=== PATIENT | male | born 1950 | race Caucasian/White ===

== ENCOUNTER 2016-12-18 14:30 | Emergency (ER) | payer OTHER ==
[2016-12-18 16:27] LABS: RED BLOOD COUNT 5.36 M/UL (4.20-5.50); WHITE BLOOD COUNT 8.2 K/UL (4.5-11.0)
[2016-12-18 16:48] LABS: BUN/CREATININE RATIO 15 (0-10)
== END 2016-12-18 18:45 | disposition home or self-care (01) ==
LOC: ER1 14:30
PROVIDERS: Family Medicine
DX: J10.1 Influenza due to other identified influenza virus with other respiratory manifestations (principal); R41.0 Disorientation, unspecified; E11.65 Type 2 diabetes mellitus with hyperglycemia; R91.1 Solitary pulmonary nodule; F17.200 Nicotine dependence, unspecified, uncomplicated; Z79.84 Long term (current) use of oral hypoglycemic drugs; Z79.899 Other long term (current) drug therapy
CPT/HCPCS: 36415; 70450; 71010; 80053; 81001; 82550; 82553; 83874; 84484; 85025; 87040; 87081; 87880; 93005; 99285

== ENCOUNTER → 2016-12-22 | Outpatient (CLI) | payer OTHER | LOC: KOH-I 08:30 | DX: R91.1 Solitary pulmonary nodule (principal); K76.0 Fatty (change of) liver, not elsewhere classified; R91.8 Other nonspecific abnormal finding of lung field | CPT/HCPCS: 71260; Q9962 ==

== ENCOUNTER 2017-01-16 15:16 | Emergency (ER) | payer OTHER ==
[2017-01-16 17:07] LABS: HEMOGLOBIN 13.2 gm/dl (14.0-17.5); RED BLOOD COUNT 4.65 M/UL (4.20-5.50); WHITE BLOOD COUNT 9.7 K/UL (4.5-11.0)
[2017-01-16 17:30] LABS: BUN/CREATININE RATIO 18 (0-10)
== END 2017-01-16 21:10 | disposition home or self-care (01) ==
LOC: ER1 15:16
PROVIDERS: Student in an Organized Health Care Education/Training Program
DX: I49.9 Cardiac arrhythmia, unspecified (principal); J44.9 Chronic obstructive pulmonary disease, unspecified; I10 Essential (primary) hypertension; E11.9 Type 2 diabetes mellitus without complications; F03.90 Unspecified dementia, unspecified severity, without behavioral disturbance, psychotic disturbance, mood disturbance, and anxiety; F17.210 Nicotine dependence, cigarettes, uncomplicated; Z85.118 Personal history of other malignant neoplasm of bronchus and lung; Z79.84 Long term (current) use of oral hypoglycemic drugs; Z79.899 Other long term (current) drug therapy
CPT/HCPCS: 36415; 71010; 80053; 82550; 82553; 83605; 83874; 83880; 84484; 85025; 87040; 93005; 99285; J7030

== ENCOUNTER 2017-02-19 21:11 | Emergency (ER) | payer OTHER ==
[2017-02-19 23:00] LABS: HEMOGLOBIN 11.5 gm/dl (14.0-17.5); RED BLOOD COUNT 3.58 M/UL (4.20-5.50); WHITE BLOOD COUNT 20.6 K/UL (4.5-11.0)
[2017-02-19 23:20] LABS: BUN/CREATININE RATIO 30 (0-10)
[2017-02-20 09:55] LABS: BUN/CREATININE RATIO 29 (0-10); HEMOGLOBIN 9.1 gm/dl (14.0-17.5); RED BLOOD COUNT 3.22 M/UL (4.20-5.50)
[2017-02-20 17:50] LABS: ACINETOBACTER BAUMANNII Not Detected (Negative); CANDIDA ALBICANS Not Detected (Negative); CANDIDA KRUSEI Not Detected (Negative); CANDIDA TROPICALIS Not Detected (Negative); ENTEROCOCCUS Not Detected (Negative); ESCHERICHIA COLI Not Detected (Negative); HAEMOPHILUS INFLUENZAE Not Detected (Negative); KLEBSIELLA OXYTOCA Not Detected (Negative); KLEBSIELLA PNEUMONIAE Not Detected (Negative); KPC-CARBAPENEM-RESISTANCE GENE Not Detected (Negative); PROTEUS Not Detected (Negative); PSEUDOMONAS AERUGINOSA Not Detected (Negative); SERRATIA MARCESANS Not Detected (Negative); STAPHYLOCOCCUS AUREUS Not Detected (Negative); STREP AGALACTIAE (GROUP B) Not Detected (Negative); STREP PYOGENES (GROUP A) Not Detected (Negative); STREPTOCOCCUS Not Detected (Negative); vanA/B (VANCOMYCIN RESIST GENE Not Detected (Negative)
[2017-02-20 19:50] LABS: mecA (METHICILLIN RESIST GENE DETECTED (Negative)
[2017-02-20 19:53] LABS: STAPHYLOCOCCUS DETECTED (Negative)
== END 2017-02-20 12:45 ==
LOC: ER1 21:11 → ZEROF 02-20 02:50 → ER1 02-20 12:45
PROVIDERS: Emergency Medicine; Physician Assistant
DX: R41.82 Altered mental status, unspecified (principal); R10.9 Unspecified abdominal pain; J44.9 Chronic obstructive pulmonary disease, unspecified; C34.90 Malignant neoplasm of unspecified part of unspecified bronchus or lung; E11.9 Type 2 diabetes mellitus without complications; I10 Essential (primary) hypertension; F03.90 Unspecified dementia, unspecified severity, without behavioral disturbance, psychotic disturbance, mood disturbance, and anxiety; J98.4 Other disorders of lung; A41.9 Sepsis, unspecified organism; Z79.84 Long term (current) use of oral hypoglycemic drugs; Z79.899 Other long term (current) drug therapy
CPT/HCPCS: 36600; 51702; 70450; 71010; 80048; 80053; 81001; 82140; 82550; 82553; 82803; 83605; 83690; 83874; 83880; 84484; 85025; 86140; 87040; 87070; 87077; 87086; 87150; 87186; 87205; 93005; 96361; 96374; 96375; 99285; J0696; J3370; J7030; J7050; Q9962